=== PATIENT | female | born 1970 | race African-American/Black ===

== ENCOUNTER 2018-04-29 20:06 | Emergency (ER) | payer OTHER ==
[2018-04-29 20:25] VITALS: BP 124/76; PULSE 110; TEMP 97.8; BMI 19.0
--- NOTE | 2018-04-29 20:25 | PDOC ---
Rapid Medical Evaluation Chief Complaint: Nausea/Vomiting Time Seen by Provider: 04/29/18 20:20 Medical Evaluation: Allergies Allergy/AdvReac Type Severity Reaction Status Date / Time No Known Allergies Allergy Verified 03/19/13 22:27 04/29/18 20:20 Pt presents with one day of abdominal pain, nausea, vomiting and congestion. Also reports leg cramping and ear pain b/l. Pt is requesting HIV testing Exam: ambulatory, NAD Orders: Labs, IV Pt to proceed to ED for further evaluation Discharge Disposition - Diagnosis Vomiting - Referrals Referrals: Yadira Yee MD [Primary Care Provider] - - Patient Instructions - Post Discharge Activity
[2018-04-29] MEDS ORDERED: SODIUM CHLORIDE 0.9% 500 ML INFUS.BAG IV ONE (20:48)
[2018-04-29] MEDS ORDERED: ONDANSETRON 4 MG/2 ML VIAL IVPUSH ONE (20:48)
--- NOTE | 2018-04-29 20:49 | PDOC ---
History of Present Illness - General Chief Complaint: Nausea/Vomiting Stated Complaint: NAUSEA/VOMITING/LEG PAIN Time Seen by Provider: 04/29/18 20:20 Past History - Past Medical History Allergies/Adverse Reactions: Allergies Allergy/AdvReac Type Severity Reaction Status Date / Time No Known Allergies Allergy Verified 04/29/18 20:25 Home Medications: Ambulatory Orders Ibuprofen [Motrin] 600 mg PO TID #20 tablet 03/20/13 Sulfamethoxazole/Trimethoprim [Bactrim *Ds*] 1 tab PO BID #14 tablet 03/20/13 Unobtainable Home Med List 0 dose .ROUTE UTDICT 03/20/13 predniSONE [Deltasone -] 40 mg PO DAILY #7 tablet 03/20/13 COPD: No Other medical history: neuromyalitis, legally blind, 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 - Suicide/Smoking/Psychosocial Hx Smoking History: Current every day smoker Have you smoked in the past 12 months: Yes Number of Cigarettes Smoked Daily: 10 Information on smoking cessation initiated: No Hx Alcohol Use: Yes (social) Drug/Substance Use Hx: No Substance Use Type: None *Physical Exam - Vital Signs Last Vital Signs Temp Pulse Resp BP Pulse Ox 97.8 F 110 H 17 124/76 100 04/29/18 20:20 04/29/18 20:20 04/29/18 20:20 04/29/18 20:20 04/29/18 20:20 Moderate Sedation - Procedure Monitoring Vital Signs: Procedure Monitoring Vital Signs Temperature 97.8 F 04/29/18 20:20 Pulse Rate 110 H 04/29/18 20:20 Respiratory Rate 17 04/29/18 20:20 Blood Pressure 124/76 04/29/18 20:20 O2 Sat by Pulse Oximetry (%) 100 04/29/18 20:20 *DC/Admit/Observation/Transfer Diagnosis at time of Disposition: Vomiting - Referrals Referrals: Yadira Yee MD [Primary Care Provider] - - Patient Instructions - Post Discharge Activity
[2018-04-29] MEDS ORDERED: FAMOTIDINE 20 MG/50 ML IVPB 20 MG/50 ML MG IVPB ONE ×3 (21:04→21:45)
[2018-04-29] MEDS ORDERED: ONDANSETRON 4 MG/2 ML VIAL ONE (21:07)
--- NOTE | 2018-04-29 21:11 | PDOC ---
History of Present Illness - General Chief Complaint: Nausea/Vomiting Stated Complaint: NAUSEA/VOMITING/LEG PAIN Time Seen by Provider: 04/29/18 20:20 History Source: Patient Exam Limitations: No Limitations - History of Present Illness Initial Comments: 04/29/18 21:47 Pt is a 48yo F with PMH of neuromyelitis presenting to ED with nausea, vomiting , diarrhea and bilateral leg pain. Pt states that this morning she started to have nausea, nbnb vomiting and non bloody diarrhea with epigastric abdominal pain. Denies fevers, sick contacts, recent travel, recent antibiotic use, fevers , chills, sore throat. She is also complaining of bilateral leg cramping located in the upper thigh. She has had these symptoms before but she states it is worse today. Denies numbness, tingling, weakness, syncope, headache. She has been unable to take all of her medications for neuromyelitis due to the size of the pills, she has been taking prednisone. LMP April 20 PMD: Dr. Nelson? 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 - Suicide/Smoking/Psychosocial Hx Smoking History: Current every day smoker Have you smoked in the past 12 months: Yes Number of Cigarettes Smoked Daily: 10 Information on smoking cessation initiated: No Hx Alcohol Use: Yes (social) Drug/Substance Use Hx: No Substance Use Type: None Review of Systems - Review of Systems Constitutional: No: Chills, Fever, Loss of Appetite, Weakness HEENTM: Yes: Other (echo in ears) Respiratory: No: Cough, Shortness of Breath, Wheezing Cardiac (ROS): No: Chest Pain, Lightheadedness, Palpitations, Syncope ABD/GI: Yes: Diarrhea, Nausea, Vomiting, Abdominal cramping. No: Blood Streaked Bowels, Constipated, Rectal Bleeding, Tarry Stools : No: Symptoms Reported, Burning, Dysuria Musculoskeletal: Yes: See HPI, Muscle Pain. No: Back Pain, Joint Pain, Muscle Weakness, Joint Stiffness Integumentary: No: Symptoms Reported Neurological: No: Headache, Numbness, Seizure, Tingling, Weakness, Ataxia *Physical Exam - Vital Signs Last Vital Signs Temp Pulse Resp BP Pulse Ox 97.8 F 110 H 17 124/76 100 04/29/18 20:20 04/29/18 20:20 04/29/18 20:20 04/29/18 20:20 04/29/18 20:20 - Physical Exam General Appearance: Yes: Appropriately Dressed, Mild Distress, Thin HEENT: positive: EOMI, SINA, Normal ENT Inspection Neck: positive: Trachea midline, Supple. negative: Lymphadenopathy (R), Lymphadenopathy (L) Respiratory/Chest: positive: Lungs Clear, Normal Breath Sounds. negative: Crackles, Rales, Rhonchi, Stridor, Wheezing Cardiovascular: positive: Regular Rhythm, Regular Rate, S1, S2. negative: Edema , JVD, Murmur Vascular Pulses: Carotid (R): 2+, Carotid (L): 2+, Dorsalis-Pedis (R): 2+, Doralis-Pedis (L): 2+ Gastrointestinal/Abdominal: positive: Normal Bowel Sounds, Tender (epigastric ) , Soft. negative: Distended, Guarding, Rebound Musculoskeletal: negative: CVA Tenderness Extremity: positive: Normal Capillary Refill Integumentary: positive: Normal Color, Dry, Warm. negative: Pale, Cold, Rash, Swelling Neurologic: positive: oracle ebs architect II-XII NML intact, Fully Oriented, Alert, Normal Mood/ Affect, Normal Response, Motor Strength 5/5. negative: Numbness, Sensory Deficit Moderate Sedation - Procedure Monitoring Vital Signs: Procedure Monitoring Vital Signs Temperature 97.8 F 04/29/18 20:20 Pulse Rate 110 H 04/29/18 20:20 Respiratory Rate 17 04/29/18 20:20 Blood Pressure 124/76 04/29/18 20:20 O2 Sat by Pulse Oximetry (%) 100 04/29/18 20:20 ED Treatment Course - LABORATORY CBC & Chemistry Diagram: 04/29/18 21:07 04/29/18 21:07 Medical Decision Making - Medical Decision Making 04/29/18 21:51 Pt is a 48yo F with PMH of neuromyelitis presenting to ED with nausea, vomiting , diarrhea and bilateral leg pain. Vitals: tachycardia PE: epigastric abdominal tenderness. Symptoms seem more like GE with leg pain being a separate complaint. Low suspicion for GBS given no ascending paralysis and pt just having bilateral thigh pain. She is otherwise able to ambulate and denies numbness. Labs ordered by RME: cbc, cmp, lipase, serum , UA, Ucx -zofran, pepcid and IVF. Tylenol for pain. Labs show WBC of 14 however pt is taking steroids (prednisone) She is afebrile and not complaining of fever. Labs wnl. Pt reports resolution of nausea. Pain was 10/10. After Tylenol 5/10. Pt does not have an acute or infectious process. Will DC home. Has appropriate follow up. Was able to drink water in the ED without feelings of nausea and vomiting. Rx sent for Zofran and pepcid. *DC/Admit/Observation/Transfer Diagnosis at time of Disposition: Vomiting Qualifiers: Vomiting type: unspecified Vomiting Intractability: non-intractable Nausea presence: with nausea Qualified Code(s): R11.2 - Nausea with vomiting, unspecified Diarrhea Qualifiers: Diarrhea type: unspecified type Qualified Code(s): R19.7 - Diarrhea, unspecified Leg pain Qualifiers: Laterality: bilateral Qualified Code(s): M79.604 - Pain in right leg - Discharge Dispostion Disposition: HOME Condition at time of disposition: Improved - Prescriptions Prescriptions: Famotidine [Pepcid -] 20 mg PO DAILY #7 tablet Ondansetron [Zofran Odt -] 4 mg SL TID #15 od.tablet - Referrals Referrals: Yadira Yee MD [Primary Care Provider] - Joshua Mann MD [Staff Physician] - - Patient Instructions Printed Discharge Instructions: DI for Vomiting -- Adult, DI for Leg Pain Additional Instructions: You were seen here today for leg pain, nausea, vomiting and diarrhea. You most likely have gastroenteritis. Try to stay hydrated. Stick to a liquid diet for the next few days then you can start drinking broths. If you can tolerate that then start moving to soft solids like applesauce, rice, toast and bananas. If you can tolerate that then you can take solid foods. A prescription for Zofran and pepcid was sent to your pharmacy. Please take as directed. You can take Tylenol for pain in your legs as needed. Try to make the appointment with Dr. Mann in the next week or two. Come back to the emergency room if pain gets worse, you develop fever, you start vomiting, you feel weak, you feel lightheaded, you are unable to eat or if any new concerning symptom develops. Thank you - Post Discharge Activity
[2018-04-29 21:31] LABS: BASO % 0.5 % (0-2.0); EOS % 0.5 % (0-4.5); HEMATOCRIT 34.7 % (32.4-45.2); HEMOGLOBIN 10.4 GM/dL (10.7-15.3); LYMPH % 6.1 % (8-40); MCH 23.1 pg (25.7-33.7); MCHC 30.1 g/dl (32.0-36.0); MEAN CELL VOLUME 76.7 fl (80-96); MEAN PLT VOLUME 7.7 fl (7.5-11.1); MONO % 9.9 % (3.8-10.2); PLATELET COUNT 492 K/MM3 (134-434); RBC 4.52 M/mm3 (3.60-5.2); RDW 18.4 % (11.6-15.6); WHITE BLOOD COUNT 14.5 K/mm3 (4.0-10.0)
--- NOTE | 2018-04-29 21:58 | PDOC ---
Attending Attestation - [facility] HPI: 04/29/18 22:01 The patient is a 48 year old female, with a significant past medical history of neuromyelitis (does not remember medication, only taking prednisone for past couple days), visual impairment, and HTN, who presents to the emergency department today with nausea, vomiting, diarrhea, and bilateral leg pain, that began this morning. The patient notes that she is constantly having diarrhea and numerous vomiting episodes, nonbloody and nonbilious. The patient reports she has intermittent leg pain associated with her neuromyelitis, but today it feels like intense cramping.The patient also reports stuffiness in the ears. She denies recent fevers, chills, headache or dizziness. She denies constipation. She denies recent dysuria, frequency, urgency or hematuria. She denies recent chest pain or shortness of breath. Allergies: NKA Past surgical history: None reported. Social history: Tobacco use ( PPD). Occasional alcohol use. denies recreational drug use. Primary Care Physician: Dr. Yadira Waldrop - Physicial Exam PE: 04/29/18 22:05 GENERAL: Well developed, well nourished. Awake and alert. No acute distress. HEENT: +legally blind. Normocephalic, atraumatic.Moist mucous membranes. Oropharynx is clear. NECK: Supple. Full ROM. No JVD. Carotid pulses 2+ and symmetric, without bruits. No thyromegaly. No lymphadenopathy. CARDIOVASCULAR: +Tachycardic. Regular rhythm. No murmurs, rubs, or gallops. Distal pulses are 2 + and symmetric. PULMONARY: No evidence of respiratory distress. Lungs clear to auscultation bilaterally. No wheezing, rales or rhonchi. ABDOMINAL: Soft. Non-tender. Non-distended. No rebound or guarding. No organomegaly. Normoactive bowel sounds. MUSCULOSKELETAL Normal range of motion at all joints. No bony deformities or tenderness. No CVA tenderness. EXTREMITIES: No cyanosis. No clubbing. No edema. No erythema. No calf tenderness. SKIN: Warm and dry. Normal capillary refill. No rashes. No jaundice. NEUROLOGICAL: Alert, awake, appropriate. Legally blind. Moving all extremities. PSYCHIATRIC: Cooperative. Good eye contact. Appropriate mood and affect. <Iveth Navarro - Last Filed: 04/29/18 22:39> - Resident Resident Name: Vanna Villasenor - ED Attending Attestation I have performed the following: I have examined & evaluated the patient, The case was reviewed & discussed with the resident, I agree w/resident's findings & plan, Exceptions are as noted - HPI HPI: 04/29/18 21:59 48 yo female presents with complaint of nausea,vomiting and diarrhea for 1 day. She also states she has b/l leg pain/cramping. - Medical Decision Making 04/29/18 23:34 pt takes prednisone chronically and this may result with the leukocytosis noted she has a bengin abd exam review of chemistries reveals electrolytes,renal function tests and LFTs are unremarkable neg preg test stable VS , afebrile pt's symptoms resolved with zofran and IVFs 04/29/18 23:36 <Rochelle Vega - Last Filed: 04/29/18 23:37> Attestations - Attestations 04/29/18 22:06 Documentation prepared by Iveth Navarro, acting as director medical for Rochelle Vega MD. <Iveth Navarro - Last Filed: 04/29/18 22:39>
[2018-04-29 22:06] LABS: ALBUMIN 4.5 g/dl (3.4-5.0); ALK PHOS 67 U/L (45-117); ANION GAP 13 MMOL/L (8-16); BILIRUBIN,TOTAL 0.3 mg/dL (0.2-1); BLOOD UREA NITROGEN 18 mg/dL (7-18); CALCIUM 8.8 mg/dL (8.5-10.1); CHLORIDE 105 mmol/L (98-107); CO2 21 mmol/L (21-32); CREATININE 1.1 mg/dL (0.55-1.3); GLUCOSE,RANDOM 83 mg/dL (74-106); LIPASE 122 U/L (73-393); SGOT/AST 21 U/L (15-37); SGPT/ALT 25 U/L (13-61); SODIUM 139 mmol/L (136-145); TOT PROT 8.2 g/dl (6.4-8.2)
[2018-04-29] MEDS ORDERED: ACETAMINOPHEN 1000 MG/100 ML VIAL (NON FORMULARY) IVPB ONE (22:28)
[2018-04-29] MEDS ORDERED: ACETAMINOPHEN INJECTION 100 ML IVPB ONE (23:06)
== END 2018-04-30 00:03 | disposition home or self-care (01) ==
LOC: JER 20:06
PROC: 3E033GC Introduction of Other Therapeutic Substance into Peripheral Vein, Percutaneous Approach (ICD-10-PCS; principal; 2018-04-29)
PROC: 3E033GC Introduction of Other Therapeutic Substance into Peripheral Vein, Percutaneous Approach (ICD-10-PCS; 2018-04-29)
PROC: 3E033NZ Introduction of Analgesics, Hypnotics, Sedatives into Peripheral Vein, Percutaneous Approach (ICD-10-PCS; 2018-04-29)
DX: R11.2 Nausea with vomiting, unspecified (principal); R19.7 Diarrhea, unspecified; M79.604 Pain in right leg; H54.8 Legal blindness, as defined in USA; Z86.69 Personal history of other diseases of the nervous system and sense organs
CPT/HCPCS: 36415; 80053; 83690; 84703; 85025; 87389; 96365; 96375; 99283-25; J0131

== ENCOUNTER 2018-12-25 15:46 | Emergency (ER) | payer OTHER ==
[2018-12-25 16:00] VITALS: BP 161/76; PULSE 69; TEMP 98.5; BMI 19.9
--- NOTE | 2018-12-25 16:05 | PDOC ---
Rapid Medical Evaluation Chief Complaint: Chest Pain Time Seen by Provider: 12/25/18 15:57 Medical Evaluation: Allergies Allergy/AdvReac Type Severity Reaction Status Date / Time No Known Allergies Allergy Verified 04/29/18 20:25 12/25/18 15:59 Patient presents to ED with complaints of: rt sided cp and rt back pain x 2 weeks unrelieved with alleve, uses rt arm to walk with cane, pain worse with movement and deep breathing patient on brief exam:reproducible rt thoracic tenderness, vss Patient ordered for: cxr, labs, toradol , ekg Patient to proceed to the ED 12/25/18 16:05 Discharge Disposition - Diagnosis Muscle spasm, Chest wall pain - Discharge Dispostion Disposition: HOME Condition at time of disposition: Stable - Prescriptions Prescriptions: Cyclobenzaprine HCl 7.5 mg PO HS PRN #14 tablet PRN Reason: Muscle Spasms Diclofenac Sodium 50 mg PO BID #20 tablet.dr - Referrals Referrals: Leslie Dahl MD [Primary Care Provider] - Joshua Siddiqi MD [Staff Physician] - Can Cheng DO [Staff Physician] - - Patient Instructions Printed Discharge Instructions: DI for Costochondritis, DI for Muscle Spasm Additional Instructions: Please take medications as prescribed. As discussed, please follow up with orthopedics if symptoms persist past 1-2 weeks. If you develop any loss of sensation or numbness to your legs, loss of bowel or bladder function, are unable to walk, or you experience any new or worsening symptoms, please return to the ER. - Post Discharge Activity
[2018-12-25] MEDS ORDERED: KETOROLAC TROMETHAMINE 30 MG/1 ML VIAL IVPUSH ONE (16:06)
[2018-12-25] MEDS ORDERED: KETOROLAC TROMETHAMINE 30 MG/1 ML VIAL ONE ×2 (17:03→18:28)
[2018-12-25 17:11] LABS: BASO % 0.8 % (0-2.0); HEMATOCRIT 30.2 % (32.4-45.2); HEMOGLOBIN 9.3 GM/dL (10.7-15.3); LYMPH % 34.4 % (8-40); MCH 25.1 pg (25.7-33.7); MCHC 30.9 g/dl (32.0-36.0); MEAN CELL VOLUME 81.4 fl (80-96); MONO % 14.8 % (3.8-10.2); PLATELET COUNT 406 K/MM3 (134-434); RBC 3.71 M/mm3 (3.60-5.2); RDW 22.1 % (11.6-15.6)
[2018-12-25 17:22] LABS: ALBUMIN 3.9 g/dl (3.4-5.0); BILIRUBIN,TOTAL 0.2 mg/dL (0.2-1); BLOOD UREA NITROGEN 14.7 mg/dL (7-18); CALCIUM 9.1 mg/dL (8.5-10.1); CREATININE 0.8 mg/dL (0.55-1.3); POTASSIUM 4.3 mmol/L (3.5-5.1); TOT PROT 6.7 g/dl (6.4-8.2)
--- NOTE | 2018-12-25 17:41 | PDOC ---
History of Present Illness - General Chief Complaint: Chest Pain Stated Complaint: CHEST PAIN/BACK PAIN Time Seen by Provider: 12/25/18 15:57 - History of Present Illness Initial Comments: 12/25/18 17:37 CHIEF COMPLAINT: R chest pain HISTORY OF PRESENT ILLNESS: 48 yo with hx of HTN, legal blindness, neuromyelitis ophthamus, presents to fast track with pain to R chest since this morning and L lower back pain that "feels like something is sitting on my back" x 1-2 weeks. Patient states the pain to her R chest is worse with movement and when she talks. Denies any cough, wheezing, fevers, chills, nausea, vomiting. Pt followed by Dr. Mann neurology. No recent travel or sick contacts. PAST MEDICAL HISTORY: HTN, legal blindness FAMILY HISTORY: Denies SOCIAL HISTORY: Denies tobacco, alcohol, illicit drug use. SURGICAL HISTORY: Denies ALLERGIES: No known drug allergies REVIEW OF SYSTEMS General/Constitutional: Denies fever or chills. Denies weakness, weight change. HEENT: Denies change in vision. Denies ear pain or discharge. Denies sore throat. Cardiovascular: R sided chest pain x 1 day. Respiratory: Denies cough, wheezing, or hemoptysis. Gastrointestinal: Denies nausea, vomiting, diarrhea or constipation. Denies rectal bleeding. Genitourinary: Denies dysuria, frequency, or change in urination. Musculoskeletal: Denies joint or muscle swelling or pain. Denies neck or back pain. Skin: Denies rash or easy bruising. Neurologic: Denies headache, vertigo, loss of consciousness, or loss of sensation. Psychiatric: Denies depression or anxiety. PHYSICAL EXAM General Appearance: Well-appearing, appropriately dressed. No apparent distress. HEENT: EOMI, PERRLA, normal ENT inspection, normal voice, TMs normal, pharynx normal. No conjunctival pallor. No photophobia, scleral icterus. Neck: Supple. Trachea midline. No tenderness, rigidity, carotid bruit, stridor , lymphadenopathy, or thyromegaly. Respiratory/Chest: Lungs CTAB. No shortness of breath, chest tenderness, respiratory distress, accessory muscle use. No crackles, rales, rhonchi, stridor , wheezing, dullness Cardiovascular: RRR. S1, S2. No JVD, murmur, bradycardia, tachycardia. Vascular Pulses: Dorsalis-Pedis (R): 2+, Dorsalis-Pedis (L): 2+ Gastrointestinal/Abdominal: Normal bowel sounds. Abdomen soft, non-distended. No tenderness or rebound tenderness. No organomegaly, pulsatile mass, guarding , hernia, hepatomegaly, splenomegaly. Lymphatic: No adenopathy, tenderness. Musculoskeletal/Extremities: R sided chest wall tenderness on palpation. Tenderness to L latissumis dorsi on palpation. No midline spine tenderness. Normal inspection. FROM of all extremities, normal capillary refill. Pelvis Stable. No CVA tenderness. No tenderness to extremities, pedal edema, swelling , erythema or deformity. Integumentary: Appropriate color, dry, warm. No cyanosis, erythema, jaundice or rash Neurologic: production zone leader II-XII intact. Fully oriented, alert. Appropriate mood/affect. Motor strength 5/5. No appreciable EOM palsy, facial droop or sensory deficit. 12/25/18 17:45 Past History - Past Medical History Allergies/Adverse Reactions: Allergies Allergy/AdvReac Type Severity Reaction Status Date / Time No Known Allergies Allergy Verified 12/25/18 16:00 Home Medications: Ambulatory Orders predniSONE [Deltasone -] 40 mg PO DAILY #7 tablet 03/20/13 Famotidine [Pepcid -] 20 mg PO DAILY #7 tablet 04/29/18 Ondansetron [Zofran Odt -] 4 mg SL TID #15 od.tablet 04/29/18 Cyclobenzaprine HCl 7.5 mg PO HS PRN #14 tablet 12/25/18 Diclofenac Sodium 50 mg PO BID #20 tablet. 12/25/18 COPD: No HTN: Yes Other medical history: blind - Suicide/Smoking/Psychosocial Hx Smoking History: Current every day smoker Have you smoked in the past 12 months: Yes Number of Cigarettes Smoked Daily: 4 Information on smoking cessation initiated: No Hx Alcohol Use: No Drug/Substance Use Hx: No Substance Use Type: None *Physical Exam - Vital Signs Last Vital Signs Temp Pulse Resp BP Pulse Ox 98.5 F 69 19 161/76 199 H 12/25/18 15:56 12/25/18 15:56 12/25/18 15:56 12/25/18 15:56 12/25/18 15:56 ED Treatment Course - LABORATORY CBC & Chemistry Diagram: 12/25/18 16:28 12/25/18 16:28 - ADDITIONAL ORDERS Additional order review: Laboratory Results 12/25/18 16:28 Sodium 137 Potassium 4.3 Chloride 107 Carbon Dioxide 26 Anion Gap 4 L BUN 14.7 Creatinine 0.8 Est GFR (CKD-EPI)AfAm 100.33 Est GFR (CKD-EPI)NonAf 86.57 Random Glucose 75 Calcium 9.1 Total Bilirubin 0.2 AST 17 ALT 15 Alkaline Phosphatase 69 Total Protein 6.7 Albumin 3.9 Lipase 138 12/25/18 16:28 RBC 3.71 MCV 81.4 MCHC 30.9 L RDW 22.1 H MPV 8.0 Neutrophils % 47.0 D Lymphocytes % 34.4 D Monocytes % 14.8 H Eosinophils % 3.0 D Basophils % 0.8 - Medications Given in the ED: ED Medications Discontinued Medications Generic Name Dose Route Start Last Admin Trade Name Freq PRN Reason Stop Dose Admin Ketorolac Tromethamine 30 mg 12/25/18 16:06 12/25/18 18:37 Toradol Injection - IVPUSH 12/25/18 16:07 30 mg ONCE ONE Administration Medical Decision Making - Medical Decision Making 12/25/18 17:41 48 yo with hx of HTN, legal blindness, neuromyelitis ophthamus, presents to fast track with pain to R chest since this morning and L lower back pain that "feels like something is sitting on my back" x 1-2 weeks. -labs, ekg, cxr Patient reassessed after adminstration of Tylenol. Patient reports feeling better. Likely MSK pain, patient states "yes it feels like my muscles." Advised patient to take medications as prescribed and to f/u with ortho if symptoms persist. Patient verbalized understanding and agrees to plan. *DC/Admit/Observation/Transfer Diagnosis at time of Disposition: Muscle spasm, Chest wall pain - Discharge Dispostion Disposition: HOME Condition at time of disposition: Stable Decision to Admit order: No - Prescriptions Prescriptions: Cyclobenzaprine HCl 7.5 mg PO HS PRN #14 tablet PRN Reason: Muscle Spasms Diclofenac Sodium 50 mg PO BID #20 tablet.dr - Referrals Referrals: Leslie Dahl MD [Primary Care Provider] - Joshua Siddiqi MD [Staff Physician] - Cheng,Can A, DO [Staff Physician] - - Patient Instructions Printed Discharge Instructions: DI for Costochondritis, DI for Muscle Spasm Additional Instructions: Please take medications as prescribed. As discussed, please follow up with orthopedics if symptoms persist past 1-2 weeks. If you develop any loss of sensation or numbness to your legs, loss of bowel or bladder function, are unable to walk, or you experience any new or worsening symptoms, please return to the ER. - Post Discharge Activity
--- NOTE | 2018-12-25 19:53 | PDOC ---
*Physical Exam - Vital Signs Last Vital Signs Temp Pulse Resp BP Pulse Ox 98.5 F 69 19 161/76 199 H 12/25/18 15:56 12/25/18 15:56 12/25/18 15:56 12/25/18 15:56 12/25/18 15:56 ED Treatment Course - LABORATORY CBC & Chemistry Diagram: 12/25/18 16:28 12/25/18 16:28 - ADDITIONAL ORDERS Additional order review: Laboratory Results 12/25/18 16:28 Sodium 137 Potassium 4.3 Chloride 107 Carbon Dioxide 26 Anion Gap 4 L BUN 14.7 Creatinine 0.8 Est GFR (CKD-EPI)AfAm 100.33 Est GFR (CKD-EPI)NonAf 86.57 Random Glucose 75 Calcium 9.1 Total Bilirubin 0.2 AST 17 ALT 15 Alkaline Phosphatase 69 Total Protein 6.7 Albumin 3.9 Lipase 138 12/25/18 16:28 RBC 3.71 MCV 81.4 MCHC 30.9 L RDW 22.1 H MPV 8.0 Neutrophils % 47.0 D Lymphocytes % 34.4 D Monocytes % 14.8 H Eosinophils % 3.0 D Basophils % 0.8 - Medications Given in the ED: ED Medications Discontinued Medications Generic Name Dose Route Start Last Admin Trade Name Freq PRN Reason Stop Dose Admin Ketorolac Tromethamine 30 mg 12/25/18 16:06 12/25/18 18:37 Toradol Injection - IVPUSH 12/25/18 16:07 30 mg ONCE ONE Administration Medical Decision Making - Medical Decision Making 12/25/18 19:52 Patient seen by the advanced practice provider under my direct supervision. Ancillary testing reviewed as necessary. I agree with plan as outlined by the advanced practice provider. *DC/Admit/Observation/Transfer Diagnosis at time of Disposition: Muscle spasm, Chest wall pain - Discharge Dispostion Disposition: HOME Condition at time of disposition: Stable - Prescriptions Prescriptions: Cyclobenzaprine HCl 7.5 mg PO HS PRN #14 tablet PRN Reason: Muscle Spasms Diclofenac Sodium 50 mg PO BID #20 tablet.dr - Referrals Referrals: Leslie Dahl MD [Primary Care Provider] - Joshua Siddiqi MD [Staff Physician] - Can Cheng DO [Staff Physician] - - Patient Instructions Printed Discharge Instructions: DI for Costochondritis, DI for Muscle Spasm Additional Instructions: Please take medications as prescribed. As discussed, please follow up with orthopedics if symptoms persist past 1-2 weeks. If you develop any loss of sensation or numbness to your legs, loss of bowel or bladder function, are unable to walk, or you experience any new or worsening symptoms, please return to the ER. - Post Discharge Activity
[2018-12-25 19:56] LABS: ANISOCYTOSIS 3+; PLATELET ESTIMATE NORMAL
--- NOTE | 2018-12-26 14:07 | EKG ---
Test Reason : Blood Pressure : / mmHG Vent. Rate : 059 BPM Atrial Rate : 059 BPM P-R Int : 152 ms QRS Dur : 080 ms QT Int : 392 ms P-R-T Axes : 062 025 035 degrees QTc Int : 388 ms SINUS BRADYCARDIA POSSIBLE LEFT ATRIAL ENLARGEMENT BORDERLINE ECG WHEN COMPARED WITH ECG OF 19-JAN-2009 17:49, NO SIGNIFICANT CHANGE WAS FOUND Confirmed by LORENA SOARES MD ([id number]) on 12/26/2018 2:07:07 PM Referred By: Confirmed By:LORENA SOARES MD
== END 2018-12-25 20:32 | disposition home or self-care (01) ==
LOC: JER 15:46
PROC: 3E0333Z Introduction of Anti-inflammatory into Peripheral Vein, Percutaneous Approach (ICD-10-PCS; principal; 2018-12-25)
DX: M94.0 Chondrocostal junction syndrome [Tietze] (principal); M62.838 Other muscle spasm; I10 Essential (primary) hypertension; H54.8 Legal blindness, as defined in USA; G36.0 Neuromyelitis optica [Devic]; Z99.89 Dependence on other enabling machines and devices
CPT/HCPCS: 36415; 71046-TC-FY; 80053; 83690; 85025; 93005; 93010; 99282-25